=== PATIENT | female | born 1965 | race African-American/Black ===

== ENCOUNTER 2019-06-20 13:45 | Inpatient (IN) ==
[2019-06-20 14:41] LABS: Basophils % 0.3 % (0.0-0.8); Eosinophils % 0.2 % (0.00-10.9); Hematocrit 38.9 VOL% (35.7-47.0); Immature Granulocytes % 0.8 %; Lymphocytes # 1.2 10*3/uL (1.4-4.0); Lymphocytes % 9.1 % (21.3-54.2); Mean Corpuscular HGB Conc 30.8 GM/DL (32-36); Monocytes % 6.5 % (1.7-12.7); Neutrophils % 83.1 % (38.7-73.9); Platelet Count 130 T/CUMM (130-400); Red Blood Count 5.26 MC/CUMM (3.8-5.5); Red Cell Distribution Width 14.6 % (9.3-17.3); White Blood Count 12.8 T/CUMM (4-12)
[2019-06-20 14:59] LABS: Alanine Aminotransferase 17 U/L (13-56); Albumin 2.2 G/DL (3.4-5.0); Alkaline Phosphatase 117 U/L (45-117); Aspartate Amino Transferase 36 U/L (0-37); Bilirubin,Total < 0.39 MG/DL (0.2-1.0); Blood Urea Nitrogen 8 MG/DL (7-18); Calcium 9.1 MG/DL (8.5-10.1); Estimated Glom Filtration Rate 130 ML/MIN; Glucose 369 MG/DL (74-106); Osmolality,Calculated 276.5 MOS/KG (273-304); Total Protein 8.7 G/DL (6.4-8.3)
[2019-06-20 15:18] LABS: ABG Base Excess 4.4 MMOL/L (-2.5-2.5); ABG Oxygen Saturation 78.7 % (95-100); ABG PCO2 39.6 MM HG (35-48); ABG PH 7.464 (7.35-7.45); ABG PO2 45.6 MM HG (80-95); ABG TCO2 25.2 MMOL/L (23-27)
[2019-06-20 15:43] LABS: Sedimentation Rate-Westergren 56 MM/HR (0-30)
[2019-06-20] MEDS ORDERED: AZITHROMYCIN INJ 500 MG in SODIUM CHLORIDE 0.9% 250 ML IV STA (15:47)
[2019-06-20] MEDS ORDERED: DEXTROSE 10% 250 ML BAG IV PRN (17:12)
[2019-06-20] MEDS ORDERED: GLUCAGON 1 MG VIAL IM PRN (17:12)
[2019-06-20] MEDS ORDERED: guaiFENesin/DM ER 600-30 MG TABLET PO PRN (17:12)
[2019-06-20] MEDS: MORPHINE 4 MG/1 ML VIAL IV PRN ×2 (20:06→23:37)
[2019-06-20] MEDS: ONDANSETRON 4 MG/2 ML VIAL IV PRN ×2 (20:06→23:37)
[2019-06-20] MEDS: ENOXAPARIN 120 MG/0.8 ML SYRINGE SUBCUT SCH (20:06)
[2019-06-20] MEDS: INSULIN LISPRO 100 UNIT/ML SUBCUT SCH (20:33)
[2019-06-20] MEDS: HYDROXYCHLOROQUINE 200 MG TABLET PO SCH (21:41)
[2019-06-20] MEDS: ACETAMINOPHEN 325 MG TABLET PO PRN (23:08)
[2019-06-21 00:46] LABS: Apearance,Urine CLEAR (Clear); Bilirubin,Urine Negative (Negative); Blood, Urine Negative (Negative); Glucose,Urine (UA) >=500 mg/dL (Negative); Ketones,Urine 20 mg/dL (Negative); Mucus,Urine Occasional /LPF (Occasional); Nitrite,Urine Negative (Negative); Protein,Urine 100 MG/DL; RBC,Urine 1 /HPF (0-4); Squamous Epithelial Cell,Urine Occasional /HPF (0-10); Urine Color Yellow (Yellow); Urine Specific Gravity 1.033 (1.001-1.035); Urine Urobilinogen < 2.0 EU/DL (0.2-1.0); WBC,Urine 1 /HPF (0-6)
[2019-06-21] MEDS: ACETAMINOPHEN 325 MG TABLET PO PRN ×3 (06:29→20:51)
[2019-06-21 06:53] LABS: Basophils % 0.2 % (0.0-0.8); Eosinophils % 0.4 % (0.00-10.9); Hematocrit 34.7 VOL% (35.7-47.0); Hemoglobin 11.1 GM/DL (12.0-16.0); Immature Granulocytes % 0.8 %; Immature Granulocytes Absolute 0.09 #; Lymphocytes # 1.7 10*3/uL (1.4-4.0); Lymphocytes % 14.8 % (21.3-54.2); Mean Corpuscular Volume 71.8 FL (87-102); Monocytes % 7.4 % (1.7-12.7); Neutrophils % 76.4 % (38.7-73.9); Platelet Count 144 T/CUMM (130-400); Red Blood Count 4.83 MC/CUMM (3.8-5.5); Red Cell Distribution Width 14.5 % (9.3-17.3); White Blood Count 11.3 T/CUMM (4-12)
[2019-06-21 07:18] LABS: Albumin 1.8 G/DL (3.4-5.0); Bilirubin,Total 0.5 MG/DL (0.2-1.0); Calcium 8.7 MG/DL (8.5-10.1); Osmolality,Calculated 272.4 MOS/KG (273-304); Thyroid Stimulating Hormone 0.413 uIU/ml (0.358-3.74); Total Protein 7.9 G/DL (6.4-8.3)
[2019-06-21 07:23] LABS: Hypochromasia 2+; Microcytosis 1+
[2019-06-21 07:24] LABS: Platelet Estimate Adequate
[2019-06-21] MEDS: ENOXAPARIN 120 MG/0.8 ML SYRINGE SUBCUT SCH ×2 (08:12→20:51)
[2019-06-21] MEDS: HYDROXYCHLOROQUINE 200 MG TABLET PO SCH ×2 (08:12→20:51)
[2019-06-21] MEDS: PANTOPRAZOLE 40 MG TABLET PO SCH (08:13)
[2019-06-21] MEDS: INSULIN LISPRO 100 UNIT/ML SUBCUT SCH ×4 (08:19→20:52)
[2019-06-21] MEDS: MORPHINE 4 MG/1 ML VIAL IV PRN ×5 (08:24→23:25)
[2019-06-21] MEDS: SODIUM CHLORIDE 0.9% 1,000 ML IV SCH (12:33)
[2019-06-21] MEDS: ONDANSETRON 4 MG/2 ML VIAL IV PRN (12:37)
[2019-06-21 14:12] LABS: ABG Base Excess 6.4 MMOL/L (-2.5-2.5); ABG HCO3 29.7 MMOL/L (20-26); ABG PCO2 37.8 MM HG (35-48); ABG PH 7.513 (7.35-7.45); ABG PO2 66.9 MM HG (80-95); ABG TCO2 30.9 MMOL/L (23-27); Allen Test Positive; Pt O2 Delivery Device Other
[2019-06-21] MEDS: INSULIN GLARGINE 100 UNIT/ML SUBCUT SCH (20:52)
[2019-06-22 03:59] LABS: Basophils % 0.2 % (0.0-0.8); Eosinophils # 0.1 10*3/uL (0.0-0.87); Eosinophils % 0.5 % (0.00-10.9); Hemoglobin 11.4 GM/DL (12.0-16.0); Immature Granulocytes % 0.8 %; Lymphocytes # 1.6 10*3/uL (1.4-4.0); Lymphocytes % 13.2 % (21.3-54.2); Mean Corpuscular HGB Conc 30.8 GM/DL (32-36); Mean Corpuscular Volume 73.3 FL (87-102); Monocytes % 5.6 % (1.7-12.7); Neutrophils % 79.7 % (38.7-73.9); Platelet Count 172 T/CUMM (130-400); Red Blood Count 5.05 MC/CUMM (3.8-5.5); Red Cell Distribution Width 14.4 % (9.3-17.3); White Blood Count 11.9 T/CUMM (4-12)
[2019-06-22] MEDS: ACETAMINOPHEN 325 MG TABLET PO PRN ×4 (04:05→21:37)
[2019-06-22] MEDS: MORPHINE 4 MG/1 ML VIAL IV PRN ×5 (04:05→21:36)
[2019-06-22 04:23] LABS: Hypochromasia Slight; Microcytosis Slight; Platelet Estimate Adequate
[2019-06-22 04:38] LABS: Albumin 1.8 G/DL (3.4-5.0); Bilirubin,Total 0.6 MG/DL (0.2-1.0); Osmolality,Calculated 263.5 MOS/KG (273-304); Total Protein 8.3 G/DL (6.4-8.3)
[2019-06-22] MEDS: PANTOPRAZOLE 40 MG TABLET PO SCH (08:10)
[2019-06-22] MEDS: HYDROXYCHLOROQUINE 200 MG TABLET PO SCH ×2 (08:10→21:38)
[2019-06-22] MEDS: INSULIN LISPRO 100 UNIT/ML SUBCUT SCH ×4 (08:52→21:45)
[2019-06-22] MEDS: ENOXAPARIN 120 MG/0.8 ML SYRINGE SUBCUT SCH ×2 (08:52→21:36)
[2019-06-22] MEDS: SODIUM CHLORIDE 0.9% 1,000 ML IV SCH ×2 (08:52→19:08)
[2019-06-22 09:41] LABS: ABG Base Excess 5.9 MMOL/L (-2.5-2.5); ABG HCO3 29.7 MMOL/L (20-26); ABG PCO2 43.7 MM HG (35-48); ABG PH 7.451 (7.35-7.45); ABG PO2 70.9 MM HG (80-95); ABG TCO2 27.7 MMOL/L (23-27); Allen Test Positive; Pt O2 Delivery Device Other
[2019-06-22] MEDS: ONDANSETRON 4 MG/2 ML VIAL IV PRN (11:19)
[2019-06-22] MEDS: LOPERAMIDE 2 MG CAPSULE PO PRN ×2 (16:02→21:45)
[2019-06-22] MEDS: LORazepam 1 MG TABLET PO PRN (17:34)
[2019-06-22] MEDS ORDERED: HydrOXYzine PAMOATE 25 MG CAPSULE PO SCH (18:00)
[2019-06-22] MEDS: INSULIN GLARGINE 100 UNIT/ML SUBCUT SCH (21:36)
[2019-06-23] MEDS: LORazepam 1 MG TABLET PO PRN ×2 (00:35→21:40)
[2019-06-23 04:18] LABS: ABG Base Excess 6.3 MMOL/L (-2.5-2.5); ABG HCO3 29.6 MMOL/L (20-26); ABG PCO2 37.7 MM HG (35-48); ABG PH 7.513 (7.35-7.45); ABG PO2 57.6 MM HG (80-95); ABG TCO2 30.8 MMOL/L (23-27); Allen Test Positive; Pt O2 Delivery Device Other
[2019-06-23] MEDS: MORPHINE 4 MG/1 ML VIAL IV PRN ×4 (05:30→21:40)
[2019-06-23] MEDS: ACETAMINOPHEN 325 MG TABLET PO PRN ×3 (05:42→21:40)
[2019-06-23] MEDS: ENOXAPARIN 120 MG/0.8 ML SYRINGE SUBCUT SCH ×2 (08:28→21:40)
[2019-06-23] MEDS: HYDROXYCHLOROQUINE 200 MG TABLET PO SCH ×2 (08:29→21:40)
[2019-06-23] MEDS: PANTOPRAZOLE 40 MG TABLET PO SCH (08:30)
[2019-06-23] MEDS: INSULIN LISPRO 100 UNIT/ML SUBCUT SCH ×4 (08:37→21:40)
[2019-06-23 10:05] LABS: Basophils % 0.3 % (0.0-0.8); Eosinophils # 0.1 10*3/uL (0.0-0.87); Hematocrit 32.9 VOL% (35.7-47.0); Hemoglobin 10.3 GM/DL (12.0-16.0); Immature Granulocytes % 1.1 %; Immature Granulocytes Absolute 0.11 #; Lymphocytes # 1.4 10*3/uL (1.4-4.0); Lymphocytes % 13.4 % (21.3-54.2); Mean Corpuscular HGB Conc 31.3 GM/DL (32-36); Mean Corpuscular Volume 73.6 FL (87-102); Mean Platelet Volume 12.8 FL (9.6-12.0); Neutrophils % 77.2 % (38.7-73.9); Platelet Count 201 T/CUMM (130-400); Red Blood Count 4.47 MC/CUMM (3.8-5.5); Red Cell Distribution Width 14.3 % (9.3-17.3); White Blood Count 10.1 T/CUMM (4-12)
[2019-06-23 10:20] LABS: Calcium 8.7 MG/DL (8.5-10.1); Osmolality,Calculated 264.8 MOS/KG (273-304)
[2019-06-23] MEDS: LOPERAMIDE 2 MG CAPSULE PO PRN ×3 (13:15→21:40)
[2019-06-23] MEDS: ONDANSETRON 4 MG/2 ML VIAL IV PRN (13:15)
[2019-06-23] MEDS: ALBUTEROL INHALER 8 GM INH SCH ×2 (18:04→21:40)
[2019-06-23] MEDS: INSULIN GLARGINE 100 UNIT/ML SUBCUT SCH (21:40)
[2019-06-24] MEDS: HydrOXYzine PAMOATE 25 MG CAPSULE PO PRN ×2 (00:30→06:20)
[2019-06-24] MEDS: LOPERAMIDE 2 MG CAPSULE PO PRN (02:40)
[2019-06-24] MEDS: MORPHINE 4 MG/1 ML VIAL IV PRN (04:10)
[2019-06-24] MEDS: ACETAMINOPHEN 325 MG TABLET PO PRN (04:10)
[2019-06-24] MEDS: ALBUTEROL INHALER 8 GM INH SCH ×2 (04:10→09:30)
[2019-06-24] MEDS: LORazepam 1 MG TABLET PO PRN (04:10)
[2019-06-24 05:21] LABS: Basophils % 0.3 % (0.0-0.8); Eosinophils # 0.1 10*3/uL (0.0-0.87); Eosinophils % 1.5 % (0.00-10.9); Hematocrit 30.3 VOL% (35.7-47.0); Hemoglobin 9.3 GM/DL (12.0-16.0); Immature Granulocytes % 1.1 %; Lymphocytes # 1.6 10*3/uL (1.4-4.0); Lymphocytes % 17.3 % (21.3-54.2); Mean Corpuscular HGB Conc 30.7 GM/DL (32-36); Mean Corpuscular Volume 74.1 FL (87-102); Mean Platelet Volume 13.5 FL (9.6-12.0); Monocytes % 7.1 % (1.7-12.7); Neutrophils % 72.7 % (38.7-73.9); Platelet Count 206 T/CUMM (130-400); Red Blood Count 4.09 MC/CUMM (3.8-5.5); Red Cell Distribution Width 14.4 % (9.3-17.3); White Blood Count 9.5 T/CUMM (4-12)
[2019-06-24 05:48] LABS: Calcium 8.8 MG/DL (8.5-10.1); Osmolality,Calculated 264.5 MOS/KG (273-304)
[2019-06-24 08:51] LABS: Ferritin 383.3 ng/ml (8-252)
[2019-06-24] MEDS ORDERED: ZINC SULFATE 220 MG CAPSULE PO SCH (09:00)
[2019-06-24] MEDS: HYDROXYCHLOROQUINE 200 MG TABLET PO SCH (09:30)
[2019-06-24] MEDS: ENOXAPARIN 120 MG/0.8 ML SYRINGE SUBCUT SCH (09:30)
[2019-06-24] MEDS: INSULIN LISPRO 100 UNIT/ML SUBCUT SCH ×2 (10:34→15:02)
[2019-06-24 13:47] VITALS: BP 146/73
== END 2019-06-24 13:30 | disposition hospice, home (50) | DRG 177 ==
LOC: EDUNIT# → EDBD → N.ED 13:45 → SUATTDRO 17:12 → N.EDINP 17:12 → N.CC 18:38 → N.2W 06-23 12:19
PROVIDERS: ADMIT Internal Medicine; ATTEND Internal Medicine

== ENCOUNTER 2020-10-18 12:08 | Inpatient (IN) ==
[2020-10-18 13:24] LABS: Basophils # 0.1 10*3/uL (0.0-0.2); Basophils % 0.6 % (0.0-0.8); Eosinophils % 0.4 % (0.00-10.9); Hematocrit 37.5 VOL% (35.7-47.0); Hemoglobin 11.6 GM/DL (12.0-16.0); Immature Granulocytes % 0.4 %; Immature Granulocytes Absolute 0.03 #; Lymphocytes # 2.1 10*3/uL (1.4-4.0); Lymphocytes % 25.5 % (21.3-54.2); Mean Corpuscular HGB Conc 30.9 GM/DL (32-36); Mean Corpuscular Volume 74.3 FL (87-102); Mean Platelet Volume 13.2 FL (9.6-12.0); Monocytes % 8.2 % (1.7-12.7); Neutrophils % 64.9 % (38.7-73.9); Platelet Count 211 T/CUMM (130-400); Red Blood Count 5.05 MC/CUMM (3.8-5.5); Red Cell Distribution Width 15.3 % (9.3-17.3)
[2020-10-18 13:34] LABS: Albumin 3.6 G/DL (3.4-5.0); Bilirubin,Total 0.4 MG/DL (0.20-1.00); Calcium 9.3 MG/DL (8.5-10.1); Potassium 3.9 MMOL/L (3.5-5.1); Total Protein 8.2 G/DL (6.4-8.2)
[2020-10-18 14:26] LABS: Bacteria,Urine Occasional /HPF (Few); Bilirubin,Urine Negative (Negative); Blood, Urine Small mg/dL (Negative); Glucose,Urine (UA) >=500 mg/dL (Negative); Ketones,Urine 5 mg/dL (Negative); Mucus,Urine Few /LPF (Occasional); Nitrite,Urine Negative (Negative); Protein,Urine 100 MG/DL; RBC,Urine 4 /HPF (0-4); Squamous Epithelial Cell,Urine Occasional /HPF (0-10); Urine Appearance Slightly Hazy (Clear); Urine Color Yellow (Yellow); Urine Specific Gravity 1.032 (1.001-1.035); Urine Urobilinogen < 2.0 EU/DL (0.2-1.0)
[2020-10-18] MEDS ORDERED: AZITHROMYCIN 250 MG TABLET PO STA (14:56)
[2020-10-18] MEDS ORDERED: cefTRIAXone 1,000 MG in SODIUM CHLORIDE 0.9% 100 ML IV STA (14:56)
[2020-10-18] MEDS ORDERED: GLUCAGON 1 MG VIAL IM PRN (15:15)
[2020-10-18] MEDS ORDERED: ALBUTEROL 2.5 MG/3 ML NEB RESP TX PRN (15:15)
[2020-10-18] MEDS ORDERED: ZALEPLON 5 MG CAPSULE PO PRN (15:15)
[2020-10-18] MEDS ORDERED: DEXTROSE 50% 25 GM/50 ML VIAL IV PRN ×2 (15:15)
[2020-10-18] MEDS ORDERED: ONDANSETRON 4 MG/2 ML VIAL IV PRN (15:15)
[2020-10-18] MEDS ORDERED: ENOXAPARIN 40 MG/0.4 ML SYRINGE SUBCUT SCH (15:30)
[2020-10-18] MEDS ORDERED: PROMETHAZINE 25 MG TABLET PO PRN (16:06)
[2020-10-18] MEDS: INSULIN REGULAR 100 UNIT/ML SUBCUT SCH ×2 (16:14→22:17)
[2020-10-18] MEDS: ENOXAPARIN 40 MG/0.4 ML SYRINGE SUBCUT SCH (16:52)
[2020-10-18] MEDS: ALBUTEROL/IPRATROPIUM 3 ML NEB RESP TX SCH (19:25)
[2020-10-18] MEDS: PREGABALIN 100 MG CAPSULE PO SCH (22:18)
[2020-10-19] MEDS: ALBUTEROL/IPRATROPIUM 3 ML NEB RESP TX SCH ×4 (00:53→19:16)
[2020-10-19 05:19] LABS: Basophils # 0.1 10*3/uL (0.0-0.2); Basophils % 0.6 % (0.0-0.8); Eosinophils % 0.4 % (0.00-10.9); Hematocrit 36.4 VOL% (35.7-47.0); Hemoglobin 11.5 GM/DL (12.0-16.0); Immature Granulocytes % 0.2 %; Immature Granulocytes Absolute 0.02 #; Lymphocytes # 2.5 10*3/uL (1.4-4.0); Lymphocytes % 29.9 % (21.3-54.2); Mean Corpuscular HGB Conc 31.6 GM/DL (32-36); Mean Corpuscular Volume 74.1 FL (87-102); Mean Platelet Volume 11.8 FL (9.6-12.0); Monocytes % 7.3 % (1.7-12.7); Neutrophils % 61.6 % (38.7-73.9); Platelet Count 260 T/CUMM (130-400); Red Blood Count 4.91 MC/CUMM (3.8-5.5); Red Cell Distribution Width 15.3 % (9.3-17.3); White Blood Count 8.2 T/CUMM (4-12)
[2020-10-19 05:37] LABS: Albumin 3.4 G/DL (3.4-5.0); Bilirubin,Total 0.8 MG/DL (0.20-1.00); Calcium 9.2 MG/DL (8.5-10.1); Osmolality,Calculated 286.5 MOS/KG (273-304); Potassium 3.5 MMOL/L (3.5-5.1)
[2020-10-19] MEDS: ACETAMINOPHEN 325 MG TABLET PO PRN (07:05)
[2020-10-19] MEDS: INSULIN REGULAR 100 UNIT/ML SUBCUT SCH ×4 (08:45→23:00)
[2020-10-19] MEDS: VENLAFAXINE XR 75 MG CAPSULE PO SCH (08:45)
[2020-10-19] MEDS: PANTOPRAZOLE 40 MG TABLET PO SCH (08:45)
[2020-10-19] MEDS: PREGABALIN 100 MG CAPSULE PO SCH ×2 (08:45→23:01)
[2020-10-19] MEDS: Fluticasone-Umeclidin-Vilanter [Trelegy Ellipta] 100-62.5-25 mcg INH SCH (08:46)
[2020-10-19 09:35] LABS: % Iron Saturation 22.8 % (18-50); Free T4 (Free Thyroxine) 1.12 NG/DL (0.76-1.46); Thyroid Stimulating Hormone 0.133 uIU/ml (0.358-3.74)
[2020-10-19 10:02] LABS: Folate 15.27 NG/ML (5.38-24.0)
[2020-10-19] MEDS ORDERED: AZITHROMYCIN INJ 500 MG in SODIUM CHLORIDE 0.9% 250 ML IV SCH (14:00)
[2020-10-19] MEDS: cefTRIAXone 1,000 MG in SODIUM CHLORIDE 0.9% 100 ML IV SCH (15:29)
[2020-10-19] MEDS: ENOXAPARIN 40 MG/0.4 ML SYRINGE SUBCUT SCH (23:00)
[2020-10-19] MEDS: traZODone 50 MG TABLET PO PRN (23:01)
[2020-10-20] MEDS: ALBUTEROL/IPRATROPIUM 3 ML NEB RESP TX SCH ×4 (00:40→20:25)
[2020-10-20] MEDS: PREGABALIN 100 MG CAPSULE PO SCH ×2 (09:37→20:37)
[2020-10-20] MEDS: VENLAFAXINE XR 75 MG CAPSULE PO SCH (09:37)
[2020-10-20] MEDS: INSULIN REGULAR 100 UNIT/ML SUBCUT SCH ×4 (09:38→20:38)
[2020-10-20] MEDS: cefTRIAXone 1,000 MG in SODIUM CHLORIDE 0.9% 100 ML IV SCH (09:38)
[2020-10-20] MEDS: PANTOPRAZOLE 40 MG TABLET PO SCH (09:38)
[2020-10-20] MEDS: Fluticasone-Umeclidin-Vilanter [Trelegy Ellipta] 100-62.5-25 mcg INH SCH (09:39)
[2020-10-20 10:14] LABS: Osmolality,Calculated 288.8 MOS/KG (273-304); Potassium 3.5 MMOL/L (3.5-5.1)
[2020-10-20] MEDS ORDERED: INSULIN GLARGINE 100 UNIT/ML SUBCUT SCH (11:00)
[2020-10-20] MEDS: ACETAMINOPHEN 325 MG TABLET PO PRN ×2 (11:47→20:37)
[2020-10-20] MEDS: METOPROLOL SUCCINATE XL 25 MG TABLET PO SCH (12:13)
[2020-10-20] MEDS: AZITHROMYCIN 250 MG TABLET PO SCH (14:49)
[2020-10-20] MEDS: INSULIN GLARGINE 100 UNIT/ML SUBCUT SCH (14:49)
[2020-10-20] MEDS: SODIUM CHLORIDE 0.9% 1,000 ML IV SCH (14:50)
[2020-10-20] MEDS: glyBURIDE 5 MG TABLET PO SCH (17:21)
[2020-10-20] MEDS: traZODone 50 MG TABLET PO PRN (20:37)
[2020-10-20] MEDS: ENOXAPARIN 40 MG/0.4 ML SYRINGE SUBCUT SCH (20:38)
[2020-10-21] MEDS: ALBUTEROL/IPRATROPIUM 3 ML NEB RESP TX SCH ×2 (00:45→07:33)
[2020-10-21] MEDS: SODIUM CHLORIDE 0.9% 1,000 ML IV SCH (04:09)
[2020-10-21 05:49] LABS: Basophils % 0.5 % (0.0-0.8); Eosinophils # 0.1 10*3/uL (0.0-0.87); Eosinophils % 1.2 % (0.00-10.9); Hematocrit 33.5 VOL% (35.7-47.0); Hemoglobin 10.6 GM/DL (12.0-16.0); Immature Granulocytes % 0.2 %; Immature Granulocytes Absolute 0.02 #; Lymphocytes # 2.8 10*3/uL (1.4-4.0); Lymphocytes % 34.4 % (21.3-54.2); Mean Corpuscular HGB Conc 31.6 GM/DL (32-36); Mean Corpuscular Volume 74.6 FL (87-102); Mean Platelet Volume 12.4 FL (9.6-12.0); Monocytes % 7.7 % (1.7-12.7); Red Blood Count 4.49 MC/CUMM (3.8-5.5); White Blood Count 8.1 T/CUMM (4-12)
[2020-10-21 05:57] LABS: Platelet Count 201 T/CUMM (130-400)
[2020-10-21 06:10] LABS: Calcium 8.7 MG/DL (8.5-10.1); Osmolality,Calculated 282.7 MOS/KG (273-304); Potassium 3.2 MMOL/L (3.5-5.1)
[2020-10-21 08:13] VITALS: BP 122/99
[2020-10-21] MEDS ORDERED: POTASSIUM CHLORIDE 20 MEQ TABLET PO ONE (08:45)
[2020-10-21] MEDS ORDERED: PIOGLITAZONE 45 MG PO SCH (09:00)
[2020-10-21] MEDS ORDERED: NON-FORMULARY MEDICATION (Pioglitazone 30 mg tablet) PO SCH (09:00)
[2020-10-21] MEDS: cefTRIAXone 1,000 MG in SODIUM CHLORIDE 0.9% 100 ML IV SCH (09:22)
[2020-10-21] MEDS: INSULIN GLARGINE 100 UNIT/ML SUBCUT SCH (09:23)
[2020-10-21] MEDS: INSULIN REGULAR 100 UNIT/ML SUBCUT SCH (09:23)
[2020-10-21] MEDS: PANTOPRAZOLE 40 MG TABLET PO SCH (09:24)
[2020-10-21] MEDS: PREGABALIN 100 MG CAPSULE PO SCH (09:24)
[2020-10-21] MEDS: glyBURIDE 5 MG TABLET PO SCH (09:24)
[2020-10-21] MEDS: VENLAFAXINE XR 75 MG CAPSULE PO SCH (09:24)
[2020-10-21] MEDS: AZITHROMYCIN 250 MG TABLET PO SCH (09:24)
[2020-10-21] MEDS: METOPROLOL SUCCINATE XL 25 MG TABLET PO SCH (09:24)
[2020-10-21] MEDS: Fluticasone-Umeclidin-Vilanter [Trelegy Ellipta] 100-62.5-25 mcg INH SCH (09:25)
== END 2020-10-21 11:34 | disposition home health service (06) | DRG 194 ==
LOC: N.ED 12:08 → N.EDINP 15:15 → N.5E 20:14
PROVIDERS: ADMIT Internal Medicine; ATTEND Internal Medicine